=== PATIENT | male | born 1995 | race Caucasian/White ===

== ENCOUNTER 2016-10-08 06:22 | Emergency (ER) | payer MEDICAID ==
[2016-10-08] MEDS ORDERED: KETOROLAC 60 MG/2 ML VIAL IM STA (07:38)
[2016-10-08] MEDS ORDERED: KETOROLAC 60 MG/2 ML VIAL ONE (07:40)
== END 2016-10-08 10:38 | disposition home or self-care (01) ==
DX: N13.2 Hydronephrosis with renal and ureteral calculous obstruction (principal)

== ENCOUNTER 2016-10-16 21:43 | Emergency (ER) | payer MEDICAID ==
[2016-10-16] MEDS ORDERED: KETOROLAC 60 MG/2 ML VIAL IVP STA (21:58)
[2016-10-16] MEDS ORDERED: KETOROLAC 30 MG/ML VIAL ONE (22:09)
[2016-10-16] MEDS ORDERED: SODIUM CHLORIDE 0.9% 1,000 ML IV ONE (22:14)
== END 2016-10-16 23:45 | disposition home or self-care (01) ==
DX: N20.1 Calculus of ureter (principal); Z87.442 Personal history of urinary calculi

== ENCOUNTER 2021-05-22 08:00 | Outpatient (CLI) | payer OTHER ==
[2021-05-22 18:53] LABS: BILIRUBIN,URINE NEGATIVE (NEGATIVE); GLUCOSE, URINE (UA) NEGATIVE (NEGATIVE); KETONES,URINE (UA) NEGATIVE (NEGATIVE); LEUKOCYTE ESTERASE, URINE NEGATIVE (NEGATIVE); NITRITE,URINE NEGATIVE (NEGATIVE); OCCULT BLOOD,URINE NEGATIVE (NEGATIVE); PROTEIN,URINE NEGATIVE (NEGATIVE); UROBILINOGEN,URINE 0.2 (NORMAL) E.U./dL (NORMAL)
[2021-05-22 18:59] LABS: CLARITY,URINE CLEAR (CLEAR)
[2021-05-22 19:11] LABS: BACTERIA,URINE None Seen /HPF (None Seen); MUCUS,URINE Few Strands; RBC,URINE 0-5 /HPF (0-5); SPERM,URINE PRESENT; SQUAMOUS EPITHELIAL CELL,UR NONE SEEN (<= Few); WBC,URINE 0-3 /HPF (0-3)
== END 2021-05-22 23:59 | disposition home or self-care (01) ==
LOC: LAB.WCP 08:00
PROVIDERS: ATTEND Physician Assistant
DX: R39.9 Unspecified symptoms and signs involving the genitourinary system (principal)
CPT/HCPCS: 81001; 87086

== ENCOUNTER 2021-09-08 14:49 | Emergency (ER) | payer BC, OTHER ==
[2021-09-08] MEDS ORDERED: KETOROLAC 15 MG/ML VIAL IVP STA (15:24)
--- NOTE | 2021-09-08 15:27 | ED Physician Documentation ---
PD HPI ABD PAIN - Stated complaint Stated Complaint: LOW ABD/GROIN PAIN - Chief complaint Chief Complaint: Abd Pain - History obtained from History obtained from: Patient - Additional information Additional information: He has had about 7 days of abdominal pain, initially was central and upper was seen at [facility]. Per his report he had normal labs and was diagnosed as gastritis, discharged on a PPI and Zofran. He was having a lot of nausea and the Zofran has certainly helped. The pain still continues and is now moved into the low abdomen. He is slightly constipated but notes no other abnormalities of his bowel movements. Appetite is good. No fevers or chills. Only abdominal surgery in the past is lithotripsy and only other comorbidity is fibromyalgia. Review of Systems Ten Systems: 10 systems reviewed and negative Constitutional: denies: Fever, Chills Cardiac: reports: Reviewed and negative Respiratory: reports: Reviewed and negative GI: denies: Diarrhea, Hematemesis, Bloody / black stool PD PAST MEDICAL HISTORY - Past Medical History Neuro: Other : Kidney stones Psych: Depression - Past Surgical History Past Surgical History: Yes HEENT: Other - Present Medications Home Medications: Ambulatory Orders Medication Instructions Recorded Confirmed Cyclobenzaprine [Flexeril] 10 mg PO TID PRN 09/08/21 09/08/21 DULoxetine [Cymbalta] 30 mg PO DAILY 09/08/21 09/08/21 Meloxicam [Mobic] 1 tablet PO DAILY 09/08/21 09/08/21 Ondansetron Odt [Zofran Odt] 4 mg TL Q4HR PRN 09/08/21 09/08/21 buPROPion HCL [Bupropion Xl] 150 mg PO DAILY 09/08/21 09/08/21 - Allergies Allergies/Adverse Reactions: Allergies Allergy/AdvReac Type Severity Reaction Status Date / Time No Known Drug Allergies Allergy Verified 09/08/21 15:04 - Social History Does the pt smoke?: No Smoking Status: Never smoker Does the pt drink ETOH?: Yes Does the pt have substance abuse?: No - Immunizations Immunizations are current?: Yes - POLST Patient has POLST: No PD ED PE NORMAL - Vitals Vital signs reviewed: Yes - General General: Alert and oriented X 3, No acute distress - HEENT HEENT: PERRL, EOMI - Neck Neck: Supple, no meningeal sign, No bony TTP - Cardiac Cardiac: RRR, No murmur - Respiratory Respiratory: No respiratory distress, Clear bilaterally - Abdomen Abdomen: Normal bowel sounds, Soft, Other (Mild tender in the low abdomen that does not seem to lateralize without surgical signs) - Back Back: No CVA TTP, No spinal TTP - Derm Derm: Normal color, Warm and dry - Extremities Extremities: No edema, No calf tenderness / cord - Neuro Neuro: Alert and oriented X 3, Normal speech Results - Vitals Vitals: Vital Signs - 24 hr 09/08/21 09/08/21 15:01 15:42 Temperature 36.6 C Heart Rate 91 94 Respiratory 16 16 Rate Blood Pressure 141/93 H 137/101 H O2 Saturation 99 98 Oxygen O2 Source Room air - Labs Labs: Laboratory Tests 09/08/21 09/08/21 09/08/21 15:38 15:38 16:50 WBC 10.1 RBC 5.32 Hgb 15.5 Hct 45.3 MCV 85.2 MCH 29.1 MCHC 34.2 RDW 12.5 Plt Count 185 MPV 12.3 H Neut # (Auto) Not Reportable Lymph # (Auto) Not Reportable [place] # (Auto) Not Reportable Eos # (Auto) Not Reportable Baso # (Auto) Not Reportable Absolute Nucleated RBC Not Reportable Total Counted 100 Band Neuts % (Manual) 6 Reactive Lymphs % (Man) 1 Abnorm Lymph % (Manual) 0 Nucleated RBC % Not Reportable Neutrophils # (Manual) 5.2 Lymphocytes # (Manual) 3.6 H Monocytes # (Manual) 0.3 Eosinophils # (Manual) 1.0 H Basophils # (Manual) 0.0 Differential Comment MANUAL DIFFERENTIAL Platelet Estimate NORMAL (130-450,000) Platelet Morphology 1+ GIANT PLATELETS RBC Morph Micro Appear NORMAL APPEARANCE Sodium 139 Potassium 3.5 Chloride 101 Carbon Dioxide 27 Anion Gap 11.0 BUN 15 Creatinine 0.9 Estimated GFR (MDRD) 102 Glucose 89 Calcium 9.3 Total Bilirubin 0.6 AST 19 ALT 28 Alkaline Phosphatase 90 Total Protein 8.2 Albumin 4.5 Globulin 3.7 Albumin/Globulin Ratio 1.2 Lipase 38 Urine Color YELLOW Urine Clarity CLEAR Urine pH 5.0 Ur Specific [place] >=1.030 H Urine Protein NEGATIVE Urine Glucose (UA) NEGATIVE Urine Ketones NEGATIVE Urine Occult Blood NEGATIVE Urine Nitrite NEGATIVE Urine Bilirubin NEGATIVE Urine Urobilinogen 0.2 (NORMAL) Ur Leukocyte Esterase NEGATIVE Ur Microscopic Review NOT INDICATED Urine Culture Comments NOT INDICATED PD MEDICAL DECISION MAKING - ED course ED course: 25-year-old gentleman presents with abdominal pain of almost weeks duration. The migration of the pain is slightly concerning for appendicitis, and a CT was done showing a generous appendix but without signs of inflammation and no change from a prior CT done in 2017. At this point I think the chance of appendicitis is low but he was given very close return precautions as seen on the discharge paperwork for recheck. Departure - Departure Disposition: 01 Home, Self Care Clinical Impression: Abdominal pain Qualifiers: Abdominal location: right lower quadrant Qualified Code(s): R10.31 - Right lower quadrant pain Condition: Good Record reviewed to determine appropriate education?: Yes Instructions: ED Abdominal Pain Excl Appendx Male Comments: Return tomorrow morning in about 12 to 15 hours if not better, anytime if worsening. Follow-up with your primary care physician regardless even if you improve next week. Discharge Date/Time: 09/08/21 18:33
[2021-09-08 15:47] LABS: BASOPHILS % (AUTO) 0.2 %; EOSINOPHILS % (AUTO) 12.6 %; HCT - HEMATOCRIT 45.3 % (42.0-52.0); HGB - HEMOGLOBIN 15.5 g/dL (14.0-18.0); LYMPHOCYTES % (AUTO) 28.2 %; MEAN CORPUSCULAR HEMOGLOBIN 29.1 pg (27.0-31.0); MEAN CORPUSCULAR HGB CONC 34.2 g/dL (32.0-36.0); MEAN CORPUSCULAR VOLUME 85.2 fL (80.0-94.0); MEAN PLATELET VOLUME 12.3 fL (7.4-11.4); MONOCYTES % (AUTO) 5.6 %; NEUTROPHILS % (AUTO) 53.1 %; PLT - PLATELET COUNT 185 10^3/uL (130-450); RED BLOOD COUNT 5.32 10^6/uL (4.70-6.10); RED CELL DISTRIBUTION WIDTH 12.5 % (12.0-15.0); WHITE BLOOD COUNT 10.1 x10^3/uL (4.8-10.8)
[2021-09-08 15:48] VITALS: BP 137/101
[2021-09-08 15:50] LABS: ABNORMAL LYMPHS % (MANUAL) 0 %
[2021-09-08 15:56] LABS: ALBUMIN 4.5 g/dL (3.2-5.5); ALBUMIN/GLOBULIN RATIO 1.2 (1.0-2.2); BILIRUBIN,TOTAL 0.6 mg/dL (0.2-1.0); CALCIUM 9.3 mg/dL (8.5-10.3); CREATININE 0.9 mg/dL (0.6-1.2); POTASSIUM 3.5 mmol/L (3.5-5.0); TOTAL PROTEIN 8.2 g/dL (6.7-8.2)
[2021-09-08 16:08] LABS: BAND NEUTROPHILS % (MANUAL) 6 %; LYMPHOCYTES # (MANUAL) 3.6 10^3/uL (1.5-3.5); LYMPHOCYTES % (MANUAL) 35 %; MONOCYTES # (MANUAL) 0.3 10^3/uL (0.0-1.0); NEUTROPHILS # (MANUAL) 5.2 10^3/uL (1.5-6.6); PLATELET ESTIMATE, MANUAL NORMAL (130-450,000) (NORMAL); PLATELET MORPHOLOGY 1+ GIANT PLATELETS (NORMAL); RBC MORPHOLOGY (MULTIPLE) NORMAL APPEARANCE (NORMAL); REACTIVE LYMPHS % (MANUAL) 1 %
[2021-09-08 16:09] LABS: DIFFERENTIAL COMMENT MANUAL DIFFERENTIAL
[2021-09-08] MEDS ORDERED: MORPHINE 2 MG/ML CARPUJECT IVP STA (16:19)
[2021-09-08] MEDS ORDERED: IOVERSOL 320 100 ML VIAL IVP ONE ×2 (16:42→17:29)
[2021-09-08 17:04] LABS: BILIRUBIN,URINE NEGATIVE (NEGATIVE); GLUCOSE, URINE (UA) NEGATIVE (NEGATIVE); KETONES,URINE (UA) NEGATIVE (NEGATIVE); LEUKOCYTE ESTERASE, URINE NEGATIVE (NEGATIVE); NITRITE,URINE NEGATIVE (NEGATIVE); OCCULT BLOOD,URINE NEGATIVE (NEGATIVE); PROTEIN,URINE NEGATIVE (NEGATIVE); UROBILINOGEN,URINE 0.2 (NORMAL) E.U./dL (NORMAL)
[2021-09-08 17:08] LABS: CLARITY,URINE CLEAR (CLEAR)
--- NOTE | 2021-09-08 17:45 | CT Report ---
PROCEDURE: Abdomen/Pelvis W INDICATIONS: IV only, RLQ pain CONTRAST: IV CONTRAST: Optiray 320 ml: 100 PO CONTRAST: *NO PO CONTRAST TECHNIQUE: After the administration of IV contrast, 5 mm thick sections acquired from the diaphragms to the symp hysis. 5 mm thick coronal and sagittal reformats were acquired. For radiation dose reduction, the f ollowing was used: automated exposure control, adjustment of mA and/or kV according to patient size. COMPARISON: 10/08/2016 FINDINGS: Image quality: Excellent. ABDOMEN: Lung bases: Lung bases are clear. Heart size is normal. A small hiatal hernia is incidentally note d. Solid organs: The liver demonstrates normal size and echogenicity. No liver lesions are detected. T he spleen measures at the upper limits of normal for size at 13 cm. An accessory splenule is incident ally noted along the hilum of the primary spleen. Gallbladder is collapsed at the time of this stud y. Biliary system is non dilated. Pancreas enhances normally. No adrenal nodules. Kidneys demonst rate normal size and enhancement, without hydronephrosis. Peritoneum and bowel: The appendix is mildly prominent in size, measuring up to 8 mm. No significant surrounding inflammatory change is seen. The appearance is similar to 2017. Bowel loops demonstrate normal wall thickness and caliber. No free fluid or air. Nodes and vessels: No retroperitoneal or mesenteric adenopathy by size criteria. Aorta and inferior vena cava are normal in size. Miscellaneous: No ventral hernias. PELVIS: Genitourinary: Bladder wall thickness is normal. Miscellaneous: No inguinal hernias or adenopathy. Bones: No suspicious bony lesions. No vertebral body compression fractures. IMPRESSION: Generous size of the appendix, which is similar to 2017. There is low suspicion for acut e appendicitis, although this may represent early appendicitis. Close clinical follow-up is suggested . Incidental note is made of: Small hiatal hernia Spleen size at the upper limits of normal Accessory splenule Reviewed by: Artie Alejandra MD on 09/08/2021 4:44 PM AKRICKIE Approved by: Artie Alejandra MD on 09/08/2021 4:44 PM AKRICKIE Station ID: [id number]
[2021-09-08] MEDS ORDERED: HYDROcod/ACET 5/325 Prepack 4 PO STA (18:04)
== END 2021-09-08 18:33 | disposition home or self-care (01) ==
LOC: ED 14:49
DX: R10.31 Right lower quadrant pain (principal); Z20.822 Contact with and (suspected) exposure to COVID-19
CPT/HCPCS: 36415; 74177; 80053; 80320; 81003; 83690; 85025; 86140; 96374; 96375; 99284; Q9967; 0202U; 81001; 87086

== ENCOUNTER 2021-09-08 23:23 | Emergency (ER) | payer BC ==
--- NOTE | 2021-09-08 23:46 | ED Physician Documentation ---
PD HPI ABD PAIN - Stated complaint Stated Complaint: RLQ PAIN - Chief complaint Chief Complaint: Abd Pain - Additional information Additional information: Patient is 25-year-Old male with past medical significant for depression, fibromyalgia presenting to the emergency department with right lower quadrant and suprapubic abdominal pain. Seen here earlier today with similar symptoms. Endorses for abdominal pain with associated nausea vomiting that began on Thursday of last week. States initially attributed pain to a reaction to his previously prescribed Cymbalta and contact his primary care doctor and discontinued this medication 2 days ago. Pain has persisted since that time. States a history of kidney stones requiring both stent placement and lithotripsy but denies any other abdominal surgeries. States went home after being in the emergency department today, attempted to take Vicodin and was unable to tolerate it due to pain. Review of Systems Ten Systems: 10 systems reviewed and negative Constitutional: denies: Fever Eyes: denies: Loss of vision Ears: denies: Loss of hearing Nose: denies: Rhinorrhea / runny nose Throat: denies: Dental pain / toothache Cardiac: denies: Chest pain / pressure Respiratory: denies: Dyspnea GI: reports: Abdominal Pain, Nausea, Vomiting, Constipation PD PAST MEDICAL HISTORY - Past Medical History Past Medical History: Yes Cardiovascular: None Respiratory: None Neuro: Other Endocrine/Autoimmune: None GI: GERD : Kidney stones HEENT: None Psych: Depression Musculoskeletal: Fibromyalgia Derm: None - Past Surgical History Past Surgical History: Yes HEENT: Other - Present Medications Home Medications: Ambulatory Orders Medication Instructions Recorded Confirmed Cyclobenzaprine [Flexeril] 10 mg PO TID PRN 09/08/21 09/08/21 HYDROcod/ACETAM 5/325 [[place] 5/325] 1 tab PO Q6HR PRN 09/08/21 09/08/21 Meloxicam [Mobic] 1 tablet PO DAILY 09/08/21 09/08/21 Ondansetron Odt [Zofran Odt] 4 mg TL Q4HR PRN 09/08/21 09/08/21 buPROPion HCL [Bupropion Xl] 150 mg PO DAILY 09/08/21 09/08/21 Dicyclomine [Bentyl] 10 mg PO ONCE #30 cap 09/09/21 polyethylene glycoL 3350 [Miralax] 17 gm PO DAILY #238 gm 09/09/21 - Allergies Allergies/Adverse Reactions: Allergies Allergy/AdvReac Type Severity Reaction Status Date / Time No Known Drug Allergies Allergy Verified 09/08/21 23:36 - Social History Does the pt smoke?: No Smoking Status: Never smoker Does the pt drink ETOH?: Yes Does the pt have substance abuse?: No - Immunizations Immunizations are current?: Yes - POLST Patient has POLST: No PD ED PE NORMAL - General General: Alert and oriented X 3 - HEENT HEENT: Atraumatic - Neck Neck: Supple, no meningeal sign - Cardiac Cardiac: RRR - Respiratory Respiratory: No respiratory distress, Clear bilaterally - Abdomen Abdomen: Normal bowel sounds, Soft, Non distended. No: Non tender (Right lower quadrant and suprapubic tenderness to palpation) - Male Male : Deferred - Rectal Rectal: Deferred - Back Back: No CVA TTP, No spinal TTP - Derm Derm: Normal color - Extremities Extremities: No deformity - Neuro Neuro: Alert and oriented X 3, No motor deficit, No sensory deficit - Psych Psych: Normal mood Results - Vitals Vitals: Vital Signs - 24 hr 09/08/21 09/09/21 23:32 00:31 Temperature 37.1 C Heart Rate 86 81 Respiratory 16 Rate Blood Pressure 138/101 H 128/99 H O2 Saturation 97 98 Oxygen O2 Source Room air - Labs Labs: Laboratory Tests 09/08/21 09/08/21 00:00 00:00 WBC 8.0 RBC 5.19 Hgb 15.2 Hct 44.6 MCV 85.9 MCH 29.3 MCHC 34.1 RDW 12.4 Plt Count 173 MPV 12.3 H Neut # (Auto) Not Reportable Lymph # (Auto) Not Reportable [place] # (Auto) Not Reportable Eos # (Auto) Not Reportable Baso # (Auto) Not Reportable Absolute Nucleated RBC Not Reportable Total Counted 100 Band Neuts % (Manual) 0 Abnorm Lymph % (Manual) 0 Nucleated RBC % Not Reportable Neutrophils # (Manual) 3.0 Lymphocytes # (Manual) 3.0 Monocytes # (Manual) 0.4 Eosinophils # (Manual) 1.6 H Basophils # (Manual) 0.0 Differential Comment MANUAL DIFFERENTIAL WBC Morphology NORMAL APPEARANCE Platelet Estimate NORMAL (130-450,000) Platelet Morphology NORMAL APPEARANCE RBC Morph Micro Appear NORMAL APPEARANCE Sodium 139 Potassium 4.1 Chloride 102 Carbon Dioxide 29 Anion Gap 8.0 BUN 12 Creatinine 0.9 Estimated GFR (MDRD) 102 Glucose 98 Calcium 9.1 Total Bilirubin 0.5 AST 17 ALT 28 Alkaline Phosphatase 83 Total Protein 7.6 Albumin 4.1 Globulin 3.5 Albumin/Globulin Ratio 1.2 Lipase 32 Ethyl Alcohol < 5.0 PD MEDICAL DECISION MAKING - ED course Complexity details: reviewed results, d/w patient ED course: Patient is 25-year-old male presenting to the emergency department with ongoing right lower quadrant abdominal pain. Past medical significant for depression, fibromyalgia, kidney stones. Afebrile, hemoglobin stable on arrival to the emergency department. Some right lower quadrant and suprapubic tenderness appreciated on arrival but no guarding, rebound, rigidity or indications of peritonitis. I did review his previous ER evaluation which included a normal leukocytosis, normal electrolytes, renal function, normal urine analysis. His CT scan was reviewed and did demonstrate some potential early findings for acute appendicitis. Did order repeat labs in the emergency department which demonstratedA white bl ood cell count of 8.0, down from 10 and were otherwise all within normal limits or nonactionable. Patient was given dose hydromorphone in the emergency department as well as IV hydration and a dose of Bentyl. I discussed all the findings with him as well as the pros and cons of repeat imaging at this time. Given that his last CT scan was less than 6 hours ago I did discuss radiation exposure versus the probability/possibility of an unchanged CT scan and patient declined repeat imaging in the emergency department. I discussed watchful waiting and careful follow-up with primary care and or r eturn to the emergency department for new or worsening symptoms over the course of the next 12 to 24 hours. He verbalized understanding of this. I will add in addition to his previous medications Bentyl and MiraLAX for bowel regimen. Otherwise clear return precautions and follow-up instructions were given prior to discharge. Departure - Departure Disposition: 01 Home, Self Care Clinical Impression: Abdominal pain Instructions: ED Abdominal Pain Unkn Cause Male Prescriptions: Dicyclomine [Bentyl] 10 mg PO ONCE #30 cap polyethylene glycoL 3350 [Miralax] 17 gm PO DAILY #238 gm Comments: Thank you for allowing us to care for you today at [facility]. All the lab work performed in the emergency department today was very reassuring. I would like you to continue to use your previously prescribed medication for pain. Also be sending prescription for Bentyl and MiraLAX, a stool softener for use at home. Please drink plenty of fluids and get plenty of rest. As before the CT scan performed earlier this evening did have some findings of inflammation around your appendix. Please do return to the emergency department if your symptoms worsen at any time or if they are not improved over the course of the next 12 to 16 hours. Once again if it anytime you have any new or worsening symptoms please not hesitate to return to the emergency department.
[2021-09-08] MEDS ORDERED: ONDANSETRON 4 MG/2 ML VIAL IVP STA (23:50)
[2021-09-08] MEDS ORDERED: HYDROmorphone 1 MG/ML CARPUJECT IVP STA (23:50)
[2021-09-08] MEDS ORDERED: SODIUM CHLORIDE 0.9% 1,000 ML IV STA (23:50)
[2021-09-09 00:14] LABS: BASOPHILS % (AUTO) 0.5 %; EOSINOPHILS % (AUTO) 14.2 %; HCT - HEMATOCRIT 44.6 % (42.0-52.0); HGB - HEMOGLOBIN 15.2 g/dL (14.0-18.0); LYMPHOCYTES % (AUTO) 35.7 %; MEAN CORPUSCULAR HEMOGLOBIN 29.3 pg (27.0-31.0); MEAN CORPUSCULAR HGB CONC 34.1 g/dL (32.0-36.0); MEAN CORPUSCULAR VOLUME 85.9 fL (80.0-94.0); MEAN PLATELET VOLUME 12.3 fL (7.4-11.4); MONOCYTES % (AUTO) 7.7 %; NEUTROPHILS % (AUTO) 41.5 %; PLT - PLATELET COUNT 173 10^3/uL (130-450); RED BLOOD COUNT 5.19 10^6/uL (4.70-6.10); RED CELL DISTRIBUTION WIDTH 12.4 % (12.0-15.0)
[2021-09-09 00:26] LABS: ABNORMAL LYMPHS % (MANUAL) 0 %; BAND NEUTROPHILS % (MANUAL) 0 %
[2021-09-09 00:29] LABS: ALBUMIN 4.1 g/dL (3.2-5.5); ALBUMIN/GLOBULIN RATIO 1.2 (1.0-2.2); ALKALINE PHOSPHATASE 83 IU/L (42-121); ALT ALANINE AMINOTRANSFERASE 28 IU/L (10-60); AST ASPARTATE AMINOTRANSFERASE 17 IU/L (10-42); BILIRUBIN,TOTAL 0.5 mg/dL (0.2-1.0); BUN - BLOOD UREA NITROGEN 12 mg/dL (6-20); CALCIUM 9.1 mg/dL (8.5-10.3); CARBON DIOXIDE - CO2 29 mmol/L (21-32); CHLORIDE 102 mmol/L (101-111); CREATININE 0.9 mg/dL (0.6-1.2); ETOH - ETHANOL < 5.0 mg/dL; GFR - MDRD 102 (>89); GLUCOSE 98 mg/dL (70-100); LIPASE 32 U/L (22-51); POTASSIUM 4.1 mmol/L (3.5-5.0); SODIUM 139 mmol/L (135-145); TOTAL PROTEIN 7.6 g/dL (6.7-8.2)
[2021-09-09 00:32] VITALS: BP 128/99
[2021-09-09 00:33] LABS: EOSINOPHILS # (MANUAL) 1.6 10^3/uL (0-0.7); LYMPHOCYTES % (MANUAL) 37 %; MONOCYTES # (MANUAL) 0.4 10^3/uL (0.0-1.0); RBC MORPHOLOGY (MULTIPLE) NORMAL APPEARANCE (NORMAL)
[2021-09-09 00:34] LABS: DIFFERENTIAL COMMENT MANUAL DIFFERENTIAL; PLATELET ESTIMATE, MANUAL NORMAL (130-450,000) (NORMAL); PLATELET MORPHOLOGY NORMAL APPEARANCE (NORMAL); WBC MORPHOLOGY (MULTIPLE) NORMAL APPEARANCE (NORMAL)
[2021-09-09] MEDS ORDERED: DICYCLOMINE 10 MG CAPSULE PO STA (00:42)
[2021-09-09 00:53] LABS: CRP - C-REACTIVE PROTEIN 3.2 mg/dL (0-1.0)
[2021-09-09 01:05] LABS: B. PARAPERTUSSIS- RESP PCR PAN NOT DETECTED; B. PERTUSSIS- RESP PCR PANEL NOT DETECTED; C. PNEUMONIAE- RESP PCR PANEL NOT DETECTED; CORONAVIRUS 229E-RESP PCR NOT DETECTED; CORONAVIRUS HKU1-RESP PCR NOT DETECTED; CORONAVIRUS NL63-RESP PCR NOT DETECTED; CORONAVIRUS OC43-RESP PCR NOT DETECTED; HUMAN METAPNEUMOVIRUS NOT DETECTED; INFLUENZA A- RESP PCR PANEL NOT DETECTED; INFLUENZA B - RESP PCR PANEL NOT DETECTED; M. PNEUMONIAE- RESP PCR PANEL NOT DETECTED; PARAINFLUENZA VIRUS 1 NOT DETECTED; PARAINFLUENZA VIRUS 2 NOT DETECTED; PARAINFLUENZA VIRUS 3 NOT DETECTED; PARAINFLUENZA VIRUS 4 NOT DETECTED; RHINOVIRUS/ENTEROVIRUS NOT DETECTED; RSV- RESP PCR PANEL NOT DETECTED; SARS-CoV-2 -RESP PCR PANEL NOT DETECTED
== END 2021-09-09 01:04 | disposition home or self-care (01) ==
LOC: ED 23:23
DX: R10.31 Right lower quadrant pain (principal); Z20.822 Contact with and (suspected) exposure to COVID-19
CPT/HCPCS: 0202U; 36415; 80053; 80320; 83690; 85025; 86140; 96374; 96375

== ENCOUNTER 2021-10-23 08:51 | Outpatient (CLI) | payer BC | END 2021-10-23 23:59 | disposition home or self-care (01) | LOC: LAB.N 08:51 | PROVIDERS: ATTEND Family Medicine | DX: U07.1 COVID-19 (principal) ==

== ENCOUNTER 2022-07-03 16:11 | Outpatient (CLI) | payer MEDICAID, OTHER | END 2022-07-03 16:12 | disposition EMS.NT | LOC: EMS 16:11 | DX: M25.512 Pain in left shoulder (principal); M25.552 Pain in left hip; V49.40XA Driver injured in collision with unspecified motor vehicles in traffic accident, initial encounter; Y92.414 Local residential or business street as the place of occurrence of the external cause ==

== ENCOUNTER 2023-11-14 19:55 | Emergency (ER) | payer MEDICAID, OTHER ==
[2023-11-14 20:44] LABS: BASOPHILS % (AUTO) 0.5 %; EOSINOPHILS # (AUTO) 0.5 10^3/uL (0.0-0.7); EOSINOPHILS % (AUTO) 6.4 %; HCT - HEMATOCRIT 45.3 % (42.0-52.0); HGB - HEMOGLOBIN 15.3 g/dL (14.0-18.0); LYMPHOCYTES # (AUTO) 3.3 10^3/uL (1.5-3.5); MEAN CORPUSCULAR HEMOGLOBIN 28.7 pg (27.0-31.0); MEAN CORPUSCULAR HGB CONC 33.8 g/dL (32.0-36.0); MEAN CORPUSCULAR VOLUME 84.8 fL (80.0-94.0); MEAN PLATELET VOLUME 12.2 fL (7.4-11.4); MONOCYTES # (AUTO) 0.7 10^3/uL (0.0-1.0); MONOCYTES % (AUTO) 7.8 %; NEUTROPHILS # (AUTO) 3.7 10^3/uL (1.5-6.6); NEUTROPHILS % (AUTO) 44.9 %; PLT - PLATELET COUNT 208 10^3/uL (130-450); RED BLOOD COUNT 5.34 10^6/uL (4.70-6.10); RED CELL DISTRIBUTION WIDTH 12.2 % (12.0-15.0); WHITE BLOOD COUNT 8.3 x10^3/uL (4.8-10.8)
[2023-11-14 20:58] LABS: BILIRUBIN,URINE NEGATIVE (NEGATIVE); CLARITY,URINE HAZY (CLEAR); GLUCOSE, URINE (UA) NEGATIVE (NEGATIVE); KETONES,URINE (UA) NEGATIVE (NEGATIVE); LEUKOCYTE ESTERASE, URINE NEGATIVE (NEGATIVE); NITRITE,URINE NEGATIVE (NEGATIVE); OCCULT BLOOD,URINE LARGE (NEGATIVE); PH,URINE 5.5 PH (5.0-7.5); PROTEIN,URINE TRACE mg/dL (NEGATIVE); UROBILINOGEN,URINE 0.2 (NORMAL) E.U./dL (NORMAL)
[2023-11-14 21:01] LABS: ALBUMIN 4.3 g/dL (3.2-5.5); ALBUMIN/GLOBULIN RATIO 1.2 (1.0-2.2); BILIRUBIN,TOTAL 0.8 mg/dL (0.2-1.0); CALCIUM 9.8 mg/dL (8.5-10.3); POTASSIUM 3.7 mmol/L (3.5-4.5); TOTAL PROTEIN 7.9 g/dL (6.4-8.9)
[2023-11-14] MEDS: KETOROLAC 15 MG/ML VIAL IVP STA (21:01)
[2023-11-14] MEDS: SODIUM CHLORIDE 0.9% 1,000 ML IV STA (21:02)
[2023-11-14 21:04] LABS: BACTERIA,URINE None Seen /HPF (None Seen); RBC,URINE TNTC /HPF (0-5); SQUAMOUS EPITHELIAL CELL,UR NONE SEEN (<= Few); WBC,URINE 0-3 /HPF (0-3)
--- NOTE | 2023-11-14 21:32 | ED Physician Documentation ---
PD HPI MALE - Stated complaint Stated Complaint: ABD PX, - Chief complaint Chief Complaint: Abd Pain - Additional information Additional information: This is a 27-year-old male who presents with left lower abdominal pain that started earlier today. He does have a history of kidney stones. He was able to manage the pain at home but then he noted that he had some hematuria this afternoon therefore he came into the ER. He was concerned that he may have recurrent kidney stone. He has not had any diarrhea or constipation, no nausea or vomiting, denies any dysuria urgency or frequency, no concern for STI. He does have chronic back issues but denies any flank pain. Review of Systems Constitutional: reports: Reviewed and negative Ears: reports: Reviewed and negative Nose: reports: Reviewed and negative Throat: reports: Reviewed and negative Cardiac: reports: Reviewed and negative Respiratory: reports: Reviewed and negative GI: reports: Abdominal Pain. denies: Nausea, Vomiting, Constipation : reports: Hematuria Skin: reports: Reviewed and negative Musculoskeletal: reports: Reviewed and negative Neurologic: reports: Reviewed and negative Psychiatric: reports: Reviewed and negative Endocrine: reports: Reviewed and negative Immunocompromised: reports: Reviewed and negative PD PAST MEDICAL HISTORY - Past Medical History Past Medical History: Yes Cardiovascular: None Respiratory: None Neuro: Other Endocrine/Autoimmune: None GI: GERD : Kidney stones HEENT: None Psych: Depression Musculoskeletal: Fibromyalgia Derm: None - Past Surgical History Past Surgical History: Yes General: Appendectomy HEENT: Other - Present Medications Home Medications: Ambulatory Orders Medication Instructions Recorded Confirmed No Known Home Medications 11/14/23 11/14/23 - Allergies Allergies/Adverse Reactions: Allergies Allergy/AdvReac Type Severity Reaction Status Date / Time No Known Drug Allergies Allergy Verified 11/14/23 20:16 - Social History Does the pt smoke?: No Smoking Status: Never smoker Does the pt drink ETOH?: Yes Does the pt have substance abuse?: No - Immunizations Immunizations are current?: Yes - POLST Patient has POLST: No PD ED PE NORMAL - Vitals Vital signs reviewed: Yes - General General: Alert and oriented X 3, No acute distress, Well developed/nourished - HEENT HEENT: Atraumatic, Moist mucous membranes - Cardiac Cardiac: RRR, No murmur - Respiratory Respiratory: No respiratory distress, Clear bilaterally - Abdomen Abdomen: Normal bowel sounds, Soft, Non distended, Other (Mild left lower quadrant tenderness without guarding no rigidity.) - Back Back: No CVA TTP, No spinal TTP - Derm Derm: Normal color, Warm and dry, No rash - Neuro Neuro: Alert and oriented X 3 Eye Opening: Spontaneous Motor: Obeys Commands Verbal: Oriented GCS Score: 15 - Psych Psych: Normal mood, Normal affect Results - Vitals Vitals: Vital Signs - 24 hr 11/14/23 20:01 Temperature 36.4 C L Heart Rate 66 Respiratory 19 Rate Blood Pressure 150/100 H O2 Saturation 99 Oxygen O2 Source Room air - Labs Labs: Laboratory Tests 11/14/23 11/14/23 11/14/23 20:35 20:38 20:38 WBC 8.3 RBC 5.34 Hgb 15.3 Hct 45.3 MCV 84.8 MCH 28.7 MCHC 33.8 RDW 12.2 Plt Count 208 MPV 12.2 H Neut # (Auto) 3.7 Lymph # (Auto) 3.3 [place] # (Auto) 0.7 Eos # (Auto) 0.5 Baso # (Auto) 0.0 Absolute Nucleated RBC 0.00 Nucleated RBC % 0.0 Sodium 135 Potassium 3.7 Chloride 99 L Carbon Dioxide 31 Anion Gap 5.0 L BUN 14 Creatinine 1.0 Estimated GFR (MDRD) 89 Glucose 75 Calcium 9.8 Total Bilirubin 0.8 AST 19 ALT 26 Alkaline Phosphatase 105 Total Protein 7.9 Albumin 4.3 Globulin 3.6 Albumin/Globulin Ratio 1.2 Lipase 32 Urine Color LT RED Urine Clarity HAZY Urine pH 5.5 Ur Specific [place] <=1.005 Urine Protein TRACE Urine Glucose (UA) NEGATIVE Urine Ketones NEGATIVE Urine Occult Blood LARGE H Urine Nitrite NEGATIVE Urine Bilirubin NEGATIVE Urine Urobilinogen 0.2 (NORMAL) Ur Leukocyte Esterase NEGATIVE Urine RBC TNTC H Urine WBC 0-3 Ur Squamous Epith Cells NONE SEEN Urine Bacteria None Seen Urine Culture Comments NOT INDICATED - Rads (name of study) No standard instances Relevant Findings:: Final report received PD Medical Decision Making - ED course Complexity details: reviewed results, considered differential, d/w patient ED course: 27-year-old male presented with left lower quadrant pain as well as hematuria. He does have a history of kidney stones so concern for possible kidney stone versus urinary tract infection versus diverticulitis versus pyelonephritis among other differentials. We obtained lab work which is reassuring including CBC and CMP that are stable, urinalysis shows hematuria but no sign of infection. Patient was given IV fluids and Toradol with this slight improvement in his pain. He is able to pass urine without difficulty. We are awaiting the CT scan and likely will be able to discharge home as there after. Departure - Departure
--- NOTE | 2023-11-14 22:45 | CT Report ---
PROCEDURE: Abdomen/Pelvis WO INDICATIONS: flank pain TECHNIQUE: A CT scan of the abdomen and pelvis was performed without the use of intravenous contrast. Images we re recorded and evaluated at appropriate window settings. Reformats: coronal and sagittal. For radiat ion dose reduction, the following was used: automated exposure control, adjustment of mA and/or kV ac cording to patient size. COMPARISON: 09/08/2021. FINDINGS: Image quality: Diagnostic. Lower chest: Unremarkable. Liver: No contour-deforming mass. Gallbladder: No radiopaque stones or wall thickening. Biliary tree: No intrahepatic or extrahepatic dilation, accounting for age. Spleen: No splenomegaly. Pancreas: No pancreatic ductal dilation. Adrenals: No adrenal nodule. Kidneys and ureters: No hydronephrosis. No contour-deforming mass. Stone within the left mid to dista l ureter measuring 5 mm resulting in mild upstream hydroureter. Few tiny punctate stones measuring 2 mm or less within the left kidney. No right kidney calcifications. Stomach, bowel and peritoneum: No gastric or small bowel dilation. No abnormal wall thickening. No pa thologic free fluid. Appendectomy Lymph nodes: No central or retroperitoneal adenopathy. Vessels: No infrarenal aortic aneurysm. Reproductive organs: Unremarkable. Bladder: Bladder wall thickness is normal, accounting for underdistention. No calcified bladder stone s. Pelvic lymph nodes: No adenopathy by size criteria. Bones: No aggressive osseous abnormality. Other: No significant ventral or inguinal hernia. IMPRESSION: 1.Stone within the left mid to distal ureter measuring 5 mm resulting in mild upstream hydroureter. N o significant hydronephrosis. 2.Few tiny punctate calcifications in the left kidney measuring 2 mm. No right renal calcifications o r hydronephrosis. Reviewed by: Alhaji Bolton MD on 11/14/2023 10:44 PM PDT Approved by: Alhaji Bolton MD on 11/14/2023 10:44 PM PDT Station ID: [id number]
[2023-11-14 22:47] VITALS: O2SAT 98
--- NOTE | 2023-11-15 01:06 | ED Physician Documentation ---
ED Addendum - Addendum Addendum: 11/15/23 01:05 Patient endorsed to me by nurse practitioner Roya awaiting CT results. He does have a left-sided kidney stone with mild hydroureter. Pain is well- controlled at this time. Meds sent electronically to pharmacy. Plan to follow- up outpatient urology. Return precautions given. Impression 1 kidney stone Disposition Home Condition stable
[2023-11-15 01:21] VITALS: BP 140/89
== END 2023-11-15 01:16 | disposition home or self-care (01) ==
LOC: ED 19:55
DX: N20.0 Calculus of kidney (principal); M79.7 Fibromyalgia; Z87.442 Personal history of urinary calculi
CPT/HCPCS: 36415; 80053; 81001; 83690; 85025; 87086; 96374; 99283

== ENCOUNTER 2023-12-14 09:05 | Day surgery (SDC) | payer OTHER ==
[2023-12-14] MEDS ORDERED: ceFAZolin 2 GM VIAL ONE (09:13)
[2023-12-14] MEDS: LACTATED RINGERS 1,000 ML IV ONE (09:21)
--- NOTE | 2023-12-14 10:34 | ANESTHESIA ---
Pre-Anesthesia VS, & Labs - Diagnosis left kidney stone - Procedure cystoscopy, left ureteroscopy, laser lithotripsy and stent placement Vital Signs: Temp Pulse Resp BP Pulse Ox O2 Flow Rate 36.1 C L 79 18 124/96 H 98 12/14/23 09:31 12/14/23 09:31 12/14/23 09:31 12/14/23 09:31 12/14/23 09:31 Height: 5 ft 7 in Weight (kg): 79.5 kg Body Mass Index: 27.4 BMI Classification: Overweight - NPO >8 hours Home Medications and Allergies Home Medications: Ambulatory Orders Cetirizine HCl [Allergy] 10 mg PO DAILY PRN 12/04/23 Cetirizine HCl [Allergy] 10 mg PO DAILY PRN 12/04/23 Allergies/Adverse Reactions: Allergies Allergy/AdvReac Type Severity Reaction Status Date / Time No Known Drug Allergies Allergy Verified 11/14/23 20:16 Anes History & Medical History - Anesthetic History Anesthesia Complications: reports: No previous complications - Medical History Cardiovascular: reports: None Pulmonary: reports: None Gastrointestinal: reports: None Urinary: reports: Kidney stones Neuro: reports: None Musculoskeletal: reports: Fibromyalgia, Chronic back pain Endocrine/Autoimmune: reports: None Blood Disorders: reports: None Skin: reports: None Smoking Status: Never smoker History of Cancer?: No - Surgical History General: reports: Appendectomy Eyes Ears Nose Throat (EENT): reports: Myringotomy (tubes), Other Urologic: reports: Ureterolithotomy (stones) Exam General: Alert, Oriented x3, Cooperative, No acute distress Dental: WNL Mouth Openin Fingerbreadth Neck Mobility: Normal Mallampati classification: II Thyromental Distance: 4-6 cm Mental/Cognitive Status: Alert/Oriented X3, Normal for patient Plan Anesthesia Type: General Consent for Procedure(s) Verified and Reviewed: Yes Code Status: Attempt Resuscitation ASA classification: 2-Mild systemic disease Is this case an emergency?: No
[2023-12-14] MEDS ORDERED: MORPHINE 2 MG/ML CARPUJECT IVP PRN (10:35)
[2023-12-14] MEDS ORDERED: ONDANSETRON 4 MG/2 ML VIAL IVP PRN ×2 (10:35→11:39)
[2023-12-14] MEDS ORDERED: fentaNYL 100 MCG/2 ML VIAL IVP PRN (10:35)
[2023-12-14] MEDS ORDERED: HYDROmorphone 0.5 MG/0.5 ML SYRINGE IVP PRN (10:35)
[2023-12-14] MEDS ORDERED: ATROPINE ABBOJECT 1 MG/10 ML SYRINGE IVP PRN (10:35)
[2023-12-14] MEDS ORDERED: NALOXONE 0.4 MG/ML VIAL IVP PRN (10:35)
[2023-12-14] MEDS ORDERED: LIDOCAINE-PF 2% 10 ML AMP SUBQ ONE (10:42)
[2023-12-14] MEDS ORDERED: MIDAZOLAM 2 MG/2 ML VIAL ONE (10:42)
[2023-12-14] MEDS ORDERED: LIDOCAINE 2% URO-JET 5 ML SYRINGE UR ONE (10:42)
[2023-12-14] MEDS ORDERED: PROPOFOL 200 MG/20 ML VIAL IVP ONE (10:42)
[2023-12-14] MEDS ORDERED: DEXAMETHASONE 4 MG/ML VIAL ONE (10:42)
[2023-12-14] MEDS ORDERED: ROCURONIUM 50 MG/5 ML VIAL ONE (10:42)
[2023-12-14] MEDS ORDERED: fentaNYL 100 MCG/2 ML VIAL ONE (10:42)
[2023-12-14] MEDS ORDERED: ONDANSETRON 4 MG/2 ML VIAL ONE (10:42)
[2023-12-14] MEDS ORDERED: LACTATED RINGERS 1,000 ML IV SCH (11:00)
[2023-12-14] MEDS: LIDOCAINE 2% URO-JET 5 ML SYRINGE UR ONE (11:17)
[2023-12-14] MEDS ORDERED: ACETAMINOPHEN 1,000 MG/100 ML 1,000 MG/100 ML BAG IV ONE (11:17)
[2023-12-14] MEDS: iohexoL-240 10 ML VIAL IVP ONE (11:17)
[2023-12-14] MEDS ORDERED: KETOROLAC 30 MG/ML VIAL ONE (11:20)
[2023-12-14] MEDS ORDERED: SUGAMMADEX 200 MG/2 ML VIAL IVP ONE (11:24)
[2023-12-14] MEDS: LACTATED RINGERS 900 ML IV ONE (11:35)
[2023-12-14] MEDS ORDERED: HYDROcod/ACETAM 5/325 MG TABLET PO PRN (11:39)
--- NOTE | 2023-12-14 11:42 | Discharge Plan ---
Discharge Plan Problem Reviewed?: Yes Disposition: Home, Self Care Condition: Good Prescriptions: Phenazopyridine HCl [Pyridium] 200 mg PO TID #9 tablet Activity Restrictions: No Restrictions Shower Restrictions: No Driving Restrictions: No Instruction Topics: Kidney Stones Tx Remove Additional Instructions or Follow Up instructions: You will be contacted for follow-up with Dr. Chakraborty in 6 months time Your appointment on December 22 has been cancelled, and is not needed No Smoking: If you smoke, Please STOP! Call for help. Follow-up with: Efe Chakraborty MD [Provider Admit Priv/Credential] -
[2023-12-14] MEDS ORDERED: iohexoL-240 10 ML VIAL IVP ONE (11:43)
--- NOTE | 2023-12-14 11:45 | OPERATIVE REPORT ---
Operative Report - General Procedure Date: 12/14/23 Planned Procedure: Cystoscopy, left ureteroscopy, laser lithotripsy, stent Pre-Op Diagnosis: left ureteral stone Procedure Performed: Cystoscopy, left retrograde pyelogram, left ureteroscopy Post Op Diagnosis: history of stones - Procedure Note Primary Surgeon: Palmer Anesthesia Provider: HERMAN Fuller Anesthesia Technique: General LMA Pathology: none Estimated Blood Loss (mL): 0 Indications: left mid 5mm ureteral stone Findings: no stones seen Complications: none - Other Other Information/Narrative: After informed consent was obtained the patient was brought to the OR and laid in the supine position. The patient was anesthetized per anesthesia protocols and prepped draped in usual sterile fashion. A formal timeout was performed to reconfirm the patient, procedure and laterality. A 22 Romanian cystoscope was advanced easily into urinary bladder. Bladder was inspected and full and there were no masses, lesions or other concerns. His left ureteral orifice was noted to be slightly erythematous consistent with bruising from a recently passed stone. We did not see a stone in the bladder. A 5 Romanian ureteral catheter was used to cannulate the ureteral orifice and a gentle retrograde pyelogram showed a smooth contour of his ureter all the way to the kidney with no evidence of obstruction. There was a very mild narrowing in the distal portion of the proximal ureter and so we elected to evaluate further. A sensor wire was placed up into the kidney and the flexible ureteroscope was advanced over this up into the kidney. There were no stones seen. The ureter was cleared under direct visualization with no stone seen. Given the minimal manipulation we elected not to leave a stent. The bladder was emptied and Uro- Jet was placed The patient tolerated procedure well was brought to PACU without further incident. He will follow-up in 6 months
[2023-12-14 12:53] VITALS: BP 113/82; O2SAT 99
--- NOTE | 2023-12-14 13:46 | ANESTHESIA POST OP EVALUATION ---
Anesthesia Post Eval - Post Anesthesia Eval Vitals: Last Vital Signs Temp 36.0 C L 12/14/23 12:45 Pulse 80 12/14/23 12:45 Resp 18 12/14/23 12:45 BP 113/82 H 12/14/23 12:45 Pulse Ox 99 12/14/23 12:45 O2 Flow Rate CV Function Including HR & BP: Stable Pain Control: Satisfactory Nausea & Vomiting: Negative Mental Status: Baseline Respiratory Status: Airway Patent Hydration Status: Satisfactory Anesthesia Complications: None
--- NOTE | 2023-12-14 15:54 | XRAY Report ---
PROCEDURE: OR C-Arm Procedure INDICATIONS: STENT PLACEMENT FLUORO TIME: 0.2 MIN TECHNIQUE: 5 fluoroscopic images of the left ureter. COMPARISON: CT abdomen and pelvis 11/14/2023. FINDINGS: Catheter in the bladder. Contrast is seen extending up the left ureter. No filling defect is identifi ed. IMPRESSION: Intraoperative guidance provided. Reviewed by: Jet Casper MD on 12/14/2023 3:53 PM PDT Approved by: Jet Casper MD on 12/14/2023 3:53 PM PDT Station ID: [id number]
== END 2023-12-14 09:06 | disposition home or self-care (01) ==
LOC: SDS 09:05
PROVIDERS: ATTEND Urology
DX: N20.1 Calculus of ureter (principal)
CPT/HCPCS: 52351; C1758; J0131; J7120; Q9966